=== PATIENT | female | born 1955 | race Two or more races ===

== ENCOUNTER 2020-11-01 20:34 | Emergency (ER) | payer MEDICARE, OTHER ==
[~2020-11-01] VITALS: Ht 172.7 cm; Wt 93.2 kg
--- NOTE | 2020-11-01 21:01 | NUR ---
PT PROVIDED URINE SAMPLE. UA ORDERED PER PROTOCOL AND TAKEN TO LAB.
[2020-11-01 21:12] LABS: MICROSCOPIC INDICATED
[2020-11-01] MEDS ORDERED: MORPHINE SULFATE 4 MG/ML, 1ML ONE (21:15)
[2020-11-01] MEDS ORDERED: MORPHINE SULFATE 4 MG/ML, 1ML IVPush PRN (21:30)
[2020-11-01] MEDS ORDERED: SODIUM CHLORIDE 0.9% 1,000ML IVBOLUS ONE (21:30)
--- NOTE | 2020-11-01 21:34 | NUR ---
PIV PLACED, LABS DRAWN AND COLLECTED BY COUNTER POCKET TRIMMER. MED MANCUSO PER AUG. IVF RUNNING.
[2020-11-01 21:38] LABS: BASOPHILS % (AUTO) 1 % (0-1); EOSINOPHILS % (AUTO) 2 % (1-7); LYMPHOCYTES % (AUTO) 20 % (22-44); MEAN CORPUSCULAR HEMOGLOBIN 34.1 pg (27.0-34.8); MEAN CORPUSCULAR HGB CONC 33.8 g/dL (32.4-35.8); MEAN PLATELET VOLUME 7.7 fL (7.4-10.4); MONOCYTES % (AUTO) 6 % (2-9); NEUTROPHILS % (AUTO) 72 % (42-75); PLATELET COUNT 333 x10^3/uL (130-400); RED BLOOD COUNT 3.92 x10^6/uL (3.82-5.3); RED CELL DISTRIBUTION WIDTH 13.5 % (9.6-15.2)
[2020-11-01 21:40] LABS: MD NO
[2020-11-01 21:48] LABS: ALBUMIN 4.1 g/dL (3.4-5.0); ANION GAP 6 mmol/L (5-15); CALCIUM 9.1 mg/dL (8.5-10.1); CHLORIDE 109 mmol/L (98-107)
[2020-11-01] MEDS ORDERED: CEFTRIAXONE 1,000 MG in DEXTROSE 5% 50 ML IVPB ONE (22:00)
--- NOTE | 2020-11-01 22:16 | NUR ---
IV ABX STARTED PER AUG. SHUKRI AT BEDSIDE TO UPDATE PT ON POC.
[2020-11-01 22:31] VITALS: BP 129/52
== END 2020-11-01 22:33 | disposition home or self-care (01) ==
LOC: ED 21:53
DX: N30.00 Acute cystitis without hematuria (principal); R00.0 Tachycardia, unspecified
CPT/HCPCS: 36415; 80048; 81001; 82040; 83605; 85025; 87086; 96361; 96374; 96375; 99284; J0696; J2270; J7030